=== PATIENT | male | born 1960 | race Caucasian/White ===

== ENCOUNTER 2024-08-16 12:31 | Emergency (ER) | payer OTHER ==
[~2024-08-16] VITALS: Ht 177.8 cm; Wt 137.0 kg
[2024-08-16 12:47] LABS: BASOPHILS 1.2 % (0-2); EOSINOPHILS 2.1 % (0-6); HEMATOCRIT 44.2 % (35.0-50.0); HEMOGLOBIN 14.9 g/dL (12.0-18.0); LYMPHOCYTES 13.8 % (24-44); MCH 30.4 (27-36); MCHC 33.6 g/dl (30-36); MCV 90.5 fl (81-99); MONOCYTES 9.4 % (0-12); NEUTROPHILS 73.5 % (39-80); PLATELET COUNT 261 K/uL (140-440); RBC 4.88 M/ul (4.3-5.7); RDW 12.5 (10.5-15.0)
[2024-08-16] MEDS ORDERED: CLONIDINE HCL0.1 MG PO (12:50)
[2024-08-16] MEDS ORDERED: GABAPENTIN100 MG PO (12:51)
[2024-08-16] MEDS ORDERED: HYDROCHLOROTHIA25 MG PO (12:51)
[2024-08-16] MEDS ORDERED: AMLODIPINE BESYL5 MG PO (12:51)
[2024-08-16] MEDS ORDERED: FUROSEMIDE40 MG PO (12:51)
[2024-08-16] MEDS ORDERED: ATORVASTATIN CA40 MG PO (12:52)
[2024-08-16] MEDS ORDERED: BASAGLAR K100 UNIT/1 SUB-Q (12:53)
[2024-08-16] MEDS ORDERED: INSULIN LI100 UNIT/2 SUB-Q (12:54)
[2024-08-16] MEDS ORDERED: LOSARTAN POTASS50 MG PO (12:54)
[2024-08-16] MEDS ORDERED: ELIQUIS5 MG PO (12:54)
[2024-08-16] MEDS ORDERED: PANTOPRAZOLE SO40 MG PO (12:55)
[2024-08-16] MEDS ORDERED: DILTIAZEM ER300 MG PO (12:55)
[2024-08-16] MEDS ORDERED: CARVEDILOL25 MG PO (12:55)
[2024-08-16 13:06] LABS: ALBUMIN 2.4 g/dL (3.4-5.0); ALBUMIN/GLOBULIN RATIO 0.6 (1.1-2.4); ANION GAP 10.9 (7-21); BILIRUBIN, TOTAL 0.5 mg/dL (0.2-1.0); BUN/CREATININE RATIO 21.89 (6.0-28.6); CALCIUM 9.4 mg/dL (8.5-10.1); CREATININE, SERUM 1.69 mg/dL (0.70-1.30); POTASSIUM 4.9 mmol/L (3.5-5.1); PROTEIN, TOTAL 6.4 g/dL (6.4-8.2)
[2024-08-16 14:42] VITALS: BP 132/73
--- NOTE | 2024-08-17 22:01 | EKG ---
[facility] [address] [facility] [place] [address] Signed Sinus bradycardia with 1st degree AV block with occasional premature ventricular complexes Nonspecific T wave abnormality Abnormal ECG No previous ECGs available Confirmed by Juan Pablo Medley MD () on 08/17/2024 10:01:01 PM Electronically Signed By: JUAN PABLO MEDLEY MD 08/17/242200 PATIENT NAME: MAYELA LEY Electrocardiogram DATE OF : 62 PHYSICIAN: JUAN PABLO MEDLEY MD REPORT #: [id number] REPORT IS CONFIDENTIAL AND NOT TO BE RELEASED WITHOUT AUTHORIZATION
== END 2024-08-16 14:44 | disposition home or self-care (01) ==
LOC: ED 12:31
PROVIDERS: Emergency Medicine
DX: R53.1 Weakness (principal); I10 Essential (primary) hypertension; E11.40 Type 2 diabetes mellitus with diabetic neuropathy, unspecified; Z79.4 Long term (current) use of insulin; Z79.01 Long term (current) use of anticoagulants; Z79.899 Other long term (current) drug therapy
CPT/HCPCS: 36415; 70450; 80053; 84484; 85025; 93005; 93010; 99285-25

== ENCOUNTER 2024-08-25 14:56 | Emergency (ER) | payer OTHER ==
[~2024-08-25] VITALS: Ht 177.8 cm; Wt 140.6 kg
[~2024-08-25 14:56] MED LIST: AMLODIPINE BESYL5 MG PO; ATORVASTATIN CA40 MG PO; BASAGLAR K100 UNIT/1 SUB-Q; CARVEDILOL25 MG PO; CLONIDINE HCL0.1 MG PO; DILTIAZEM ER300 MG PO; ELIQUIS5 MG PO; FUROSEMIDE40 MG PO; GABAPENTIN100 MG PO; HYDROCHLOROTHIA25 MG PO; INSULIN LI100 UNIT/2 SUB-Q; LOSARTAN POTASS50 MG PO; PANTOPRAZOLE SO40 MG PO
--- OUTSIDE RECORDS SUMMARY | 2024-08-25 15:02 | XMS ---
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 [place] VISIT COUNT (12 MO.) 2 [facility] TOTAL 2 NOTE: Visits indicate total known visits. ED/UCC VISIT TRACKING (12 MO.) 08/25/2024 14:[address] [facility] [place] TYPE: Emergency COMPLAINT: - ABDNORMAL LAB RESULTS 08/16/2024 12:[address] [facility] [place] TYPE: Emergency COMPLAINT: - STROKE DIAGNOSES: - Essential (primary) hypertension - residential (current) use of anticoagulants - buttermaker helper (current) use of insulin - Other rodent exterminator (current) drug therapy - Type 2 diabetes mellitus with diabetic neuropathy, unspecified - Weakness INPATIENT VISIT TRACKING (12 MO.) No inpatient visits to display in this time frame [email or web address]
[2024-08-25 18:04] LABS: BASOPHILS 0.3 % (0-2); EOSINOPHILS 4.5 % (0-6); HEMATOCRIT 37.6 % (35.0-50.0); HEMOGLOBIN 12.9 g/dL (12.0-18.0); LYMPHOCYTES 7.9 % (24-44); MCH 30.6 (27-36); MCHC 34.4 g/dl (30-36); MCV 89.1 fl (81-99); MONOCYTES 8.3 % (0-12); PLATELET COUNT 265 K/uL (140-440); RBC 4.22 M/ul (4.3-5.7); RDW 12.6 (10.5-15.0)
[2024-08-25 18:26] LABS: ALBUMIN 1.8 g/dL (3.4-5.0); ALBUMIN/GLOBULIN RATIO 0.46 (1.1-2.4); BILIRUBIN, TOTAL 0.4 mg/dL (0.2-1.0); BUN/CREATININE RATIO 15.95 (6.0-28.6); CALCIUM 8.6 mg/dL (8.5-10.1); CREATININE, SERUM 1.63 mg/dL (0.70-1.30); MAGNESIUM 1.6 mg/dL (1.8-2.4); PROTEIN, TOTAL 5.7 g/dL (6.4-8.2)
[2024-08-25 20:05] VITALS: BP 150/76
--- NOTE | 2024-08-27 21:07 | EKG ---
[facility] [address] [facility] [place] [address] Signed Normal sinus rhythm Normal ECG When compared with ECG of 16-AUG-2024 12:59, premature ventricular complexes are no longer present FL interval has decreased Nonspecific T wave abnormality no longer evident in Lateral leads Confirmed by Kayla Liu MD ([id number]) on 08/27/2024 9:07:19 PM Electronically Signed By: KAYLA LIU MD 08/27/24 2107 PATIENT NAME: MAYELA LEY Electrocardiogram DATE OF : 62 PHYSICIAN: KAYLA LIU MD REPORT #: [id number] REPORT IS CONFIDENTIAL AND NOT TO BE RELEASED WITHOUT AUTHORIZATION
== END 2024-08-25 20:08 | disposition home or self-care (01) ==
LOC: ED 14:56
PROVIDERS: Emergency Medicine
DX: I11.0 Hypertensive heart disease with heart failure (principal); I50.9 Heart failure, unspecified; E11.40 Type 2 diabetes mellitus with diabetic neuropathy, unspecified; Z79.899 Other long term (current) drug therapy; Z79.4 Long term (current) use of insulin; Z79.01 Long term (current) use of anticoagulants
CPT/HCPCS: 36415; 71045; 80053; 83735; 83880; 84484; 85025; 93005; 93010; 99284-25

== ENCOUNTER 2024-09-09 08:25 | Day surgery (SDC) | payer OTHER ==
[2024-08-27 13:30] VITALS: BP 187/93
[~2024-09-09] VITALS: Ht 177.8 cm; Wt 140.0 kg
[~2024-09-09 08:25] MED LIST changes: +IBLOOD GLUCOSE TEST STRIP 1 EA TEST VI PRN; +LACTATED RINGER'S 1,000 ML IV SCH; +LIDOCAINE HCL 1% 5 ML SDV INJ ONE; +MIDAZOLAM HCL 5 MG/5 ML VIAL IV PRN; +fentaNYL citrate 100 MCG/2 ML VIAL IV PRN
[2024-09-09 08:53] VITALS: BP 135/75
[2024-09-09] MEDS ORDERED: propofoL 200 MG/20 ML VIAL ONE (10:18)
[2024-09-09] MEDS ORDERED: DIGOXIN 500 MCG/2 ML AMP ONE (11:21)
[2024-09-09 13:25] VITALS: BP 141/79
--- NOTE | 2024-09-09 20:17 | OR ---
[facility] [address] [place], [place] [address] Signed DATE OF OPERATION: 09/09/2024 SURGEON: Nathaniel Starkey MD PREOPERATIVE DIAGNOSIS: Guaiac-positive stool. POSTOPERATIVE DIAGNOSES: 1. 15 mm pedunculated polyp at 40 cm in left colon (snare, tattoo). 2. 5 mm polyps x2 at hepatic flexure (snare x2). 3. 7 mm polyp at cecum (snare). 4. 4 mm polyp at proximal right colon (hot biopsy). 5. 5 mm and 12 mm polyp at mid right colon (snare x2). 6. 5 mm polyp at proximal transverse colon (hot biopsy). PROCEDURE: Colonoscopy, snare polypectomy hot biopsy and injection of tattoo x1. ESTIMATED BLOOD LOSS: None. INDICATIONS: Kian is a 64-year-old obese diabetic gentleman, asked to see me for his initial colonoscopy. He is originally from [place], [place]. 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 His uncontrolled diabetes and peripheral neuropathy was so bad he had to retire. On his way back to [place], he was having diarrhea. He stopped at his sister's house. He went to a local Urgent Care Clinic. All the stool studies were negative. Eventually, he made his way all the way back to [place], [place] to be with his family. He has established with a primary care provider here in [place], [place]. [place] His repeat stool samples were guaiac positive. He said the diarrhea resolved after about 10 days. He was telling me about his uncontrolled diabetes with a hemoglobin A1c over 10. He said it is getting better now. He said he cannot remember when his sugar was under 300. He also has a history of atrial flutter and required a cardioversion. He said he has been in sinus rhythm ever since. He said he had two tiny strokes in June of this year. He has been on Eliquis since that time. He said it is very expensive and he is probably going to have to stop the Eliquis. He has no family history of colon cancer or polyps. In the office I had given him a pamphlet on colonoscopy. We had reviewed the nature of the test. There is risk including, but not limited to gas bloating, crampy abdominal pain, bleeding, perforation requiring surgery, Electronically Signed By: NATHANIEL STARKEY MD 09/09/242016 PATIENT NAME: KIAN LEY OPERATIVE REPORT DATE OF : 62 REPORT #: [id number] PHYSICIAN: NATHANIEL STARKEY MD PCP: PHOEBE GANNON PAC REPORT IS CONFIDENTIAL AND NOT TO BE RELEASED WITHOUT AUTHORIZATION [facility] [address] [place] [id number] Signed and missed diagnosis. We also reviewed the written instructions for our bowel prep line by line. We had him hold Eliquis before the procedure along with his diabetic medications. His memory is not the best since the strokes, his sister has been helping him in that regard. In fact, she is here today to help drive him home. The [facility] [employer] patrol stopped him and he had been all over the road. He is no longer allowed to drive. Apparently his daughter is in the area as well. He has a very full round face and he is trying to get his medical conditions under control. Therefore, we asked for monitored anesthesia care propofol infusion. That worked out well. He had expressed understanding and wished to proceed. DESCRIPTION OF PROCEDURE: Kian was taken into our endoscopy suite and placed in the left lateral decubitus position. He was given monitored anesthesia care per our nurse supervisor pre wave. A digital rectal exam was performed. Really not much in the way of external hemorrhoids. He had good sphincter tone. No masses. The adult colonoscope was introduced and advanced all the way around into the cecum under direct visualization of camera without difficulty. Thankfully, his prep was quite good. He is not particularly difficult to scope. We could easily see the appendiceal orifice and ileocecal valve. You can see the eight polyps that we removed as listed above using the snare mostly and also the hot biopsy forceps. We also put a tattoo back at 40 cm. There was no diverticulosis. Once we got in the rectum, the scope was retroflexed and there was no additional pathology noted above the anal canal. After this, the gas was suctioned out. The colonoscope removed. Kian tolerated the procedure quite well. RECOMMENDATIONS: I will see Kian back in my office in 7 to 14 days to review his results. He will always need monitored anesthesia care in the future. I suspect he will be on a short rotation maybe 1 to 3 years depending on pathology results. Nathaniel Starkey MD ALB/MODL /[id number] cc: Nathaniel Starkey MD Electronically Signed By: NATHANIEL STARKEY MD 09/09/242016 PATIENT NAME: KIAN LEY OPERATIVE REPORT DATE OF : 62 REPORT #: [id number] PHYSICIAN: NATHANIEL STARKEY MD PCP: PHOEBE GANNON PAC REPORT IS CONFIDENTIAL AND NOT TO BE RELEASED WITHOUT AUTHORIZATION [facility] [address] [place], [place] [address] Signed Phoebe Gannon PA-C Copies: NATHANIEL STARKEY MD ~ Electronically Signed By: NATHANIEL STARKEY MD 09/09/24 2017 PATIENT NAME: KIAN LEY OPERATIVE REPORT DATE OF : 62 REPORT #: [id number] PHYSICIAN: NATHANIEL STARKEY MD PCP: PHOEBE GANNON PAC REPORT IS CONFIDENTIAL AND NOT TO BE RELEASED WITHOUT AUTHORIZATION
--- NOTE | 2024-09-11 10:27 | PATH ---
[facility] [address] [facility] [address] [place], [place] [address] Signed SPECIMEN(S): A DESCENDING COLON POLYP AT 40 CM SPECIMEN(S): B HEPATIC FLEXURE COLON POLYPS SPECIMEN(S): C CECUM COLON POLYP SPECIMEN(S): D PROXIMAL ASCENDING COLON POLYP SPECIMEN(S): E DISTAL ASCENDING COLON POLYP SPECIMEN(S): F PROXIMAL TRANSVERSE COLON POLYP SPECIMEN(S): G MID ASCENDING COLON POLYP SPECIMEN SOURCE: A. DESCENDING COLON POLYP AT 40 CM B. HEPATIC FLEXURE COLON POLYPS C. CECUM COLON POLYP D. PROXIMAL ASCENDING COLON POLYP E. DISTAL ASCENDING COLON POLYP F. PROXIMAL TRANSVERSE COLON POLYP G. MID ASCENDING COLON POLYP CLINICAL HISTORY: Guaiac positive, initial C-scope, diarrhea. Postop: Colon polyps. FINAL PATHOLOGIC DIAGNOSIS: A. Colon, descending at 40 cm, polypectomy: - Tubulovillous adenoma with high-grade dysplasia - Polypectomy margin involved by low-grade dysplasia B. Colon, hepatic flexure, polypectomies: - Tubular adenomas (multiple fragments) C. Cecum, polypectomy: - Tubular adenoma D. Colon, proximal ascending, polypectomy: - Tubular adenoma E. Colon, distal ascending, polypectomy: - Tubular adenoma F. Colon, proximal transverse, polypectomy: - Tubular adenoma G. Colon, mid ascending, polypectomy: - Tubular adenoma BRP MICROSCOPIC EXAMINATION: Histologic sections of all submitted blocks are examined by light microscopy. These findings, together with the gross examination, support the pathologic PATIENT NAME: MAYELA LEY ANTONIA PATHOLOGY DATE OF : 62 REPORT #: [id number] PHYSICIAN: MURTAZA PATHOLOGY PCP: PHOEBE JAMES PAC REPORT IS CONFIDENTIAL AND NOT TO BE RELEASED WITHOUT AUTHORIZATION [facility] [address] [place], [place] [address] Signed diagnosis. GROSS DESCRIPTION: A. The specimen, labeled and designated "Valeriy, descending colon polyp at 40 cm," is received in formalin and consists of three moreira soft tissue fragments, ranging from 0.6-0.8 cm. Two tissue fragments are inked and all three are sectioned. Entire specimen is submitted in (A1). B. The specimen, labeled and designated "Valeriy, hepatic flexure polyps," is received in formalin and consists of multiple moreira soft tissue fragments, 0.1-0.3 cm. Entirely submitted in (B1). C. The specimen, labeled and designated "Valeriy, cecum polyp," is received in formalin and consists of one moreira soft tissue fragment, 0.6 cm. Specimen is bisected and entirely submitted in (C1). D. The specimen, labeled and designated "Valeriy, proximal ascending colon polyp," is received in formalin and consists of three moreira soft tissue fragments, ranging from 0.1 to 0.2 cm. Entirely submitted in (D1). E. The specimen, labeled and designated "Valeriy, distal ascending colon polyp," is received in formalin and consists of two moreira soft tissue fragments, ranging from 0.1 to 0.2 cm. Entirely submitted in (E1). F. The specimen, labeled and designated "Valeriy, proximal transverse colon polyp," is received in formalin and consists of one moreira soft tissue fragment, 0.1 cm. Entirely submitted in (F1). G. The specimen, labeled and designated "Valeriy, mid ascending colon polyp," is received in formalin and consists of one moreira soft tissue fragment, 0.7 cm. Specimen is bisected and entirely submitted in (G1). JS (under the direct supervision of a pathologist) The Gross Description was prepared using a voice recognition system. The report was reviewed for accuracy; however, sound-alike word errors, addition and/or deletions may occur. If there is any question about this report, please contact Client Services. ADDITIONAL NOTES: Immunohistochemical and/or in situ hybridization studies if performed in this case included appropriate positive controls that reacted as expected. This test was developed and its performance characteristics determined by [facility]. It has not been cleared or approved by the U.S. Food and Drug Administration. The FDA has determined that PATIENT NAME: MAYELA LEY PATHOLOGY DATE OF : 62 REPORT #: [id number] PHYSICIAN: MURTAZA LIMA PCP: PHOEBE JAMES PAC REPORT IS CONFIDENTIAL AND NOT TO BE RELEASED WITHOUT AUTHORIZATION [facility] [address] [place] [id number] Signed such clearance or approval is not necessary. This test is used for clinical purposes. It should not be regarded as investigational or for research. [facility] is certified under the Clinical Laboratory Improvement Amendments of 1988 (CLIA) as qualified to perform high complexity clinical laboratory testing. PERFORMING LABORATORY: Technical component was performed by [facility], [address] [place] [address] (CLIA# [id number]). Professional interpretation was performed by [facility], [address] [address] (CLIA# [id number]). Diagnostician: Madhu Oliva MD Pathologist Electronically Signed 09/11/2024 Copies: ~ PATIENT NAME: MAYELA LEY PATHOLOGY DATE OF : 62 REPORT #: [id number] PHYSICIAN: MURTAZA PATHOLOGY PCP: PHOEBE JAMES PAC REPORT IS CONFIDENTIAL AND NOT TO BE RELEASED WITHOUT AUTHORIZATION
== END 2024-09-09 13:37 | disposition home or self-care (01) ==
LOC: DS 08:25
PROVIDERS: ATTEND Colon & Rectal Surgery
PROC: 0DBL8ZZ Excision of Transverse Colon, Via Natural or Artificial Opening Endoscopic (ICD-10-PCS; 2024-09-09)
PROC: 0DBF8ZZ Excision of Right Large Intestine, Via Natural or Artificial Opening Endoscopic (ICD-10-PCS; 2024-09-09)
PROC: 0DBG8ZZ Excision of Left Large Intestine, Via Natural or Artificial Opening Endoscopic (ICD-10-PCS; 2024-09-09)
PROC: 0DBH8ZZ Excision of Cecum, Via Natural or Artificial Opening Endoscopic (ICD-10-PCS; principal; 2024-09-09 11:15)
DX: D12.0 Benign neoplasm of cecum (principal); D12.2 Benign neoplasm of ascending colon; D12.3 Benign neoplasm of transverse colon; D12.4 Benign neoplasm of descending colon; E66.9 Obesity, unspecified; I10 Essential (primary) hypertension; K21.9 Gastro-esophageal reflux disease without esophagitis; I48.91 Unspecified atrial fibrillation; E11.42 Type 2 diabetes mellitus with diabetic polyneuropathy; G47.33 Obstructive sleep apnea (adult) (pediatric); Z79.899 Other long term (current) drug therapy; Z68.41 Body mass index [BMI] 40.0-44.9, adult; Z86.73 Personal history of transient ischemic attack (TIA), and cerebral infarction without residual deficits
CPT/HCPCS: 00811; 36415; 83880; J1160; J2704; J7121

== ENCOUNTER 2024-09-17 11:34 | Inpatient (IN) | payer OTHER ==
[~2024-09-17] VITALS: Ht 177.8 cm; Wt 138.2 kg
[~2024-09-17 11:34] MED LIST changes: -IBLOOD GLUCOSE TEST STRIP 1 EA TEST VI PRN; -LACTATED RINGER'S 1,000 ML IV SCH; -LIDOCAINE HCL 1% 5 ML SDV INJ ONE; -MIDAZOLAM HCL 5 MG/5 ML VIAL IV PRN; -fentaNYL citrate 100 MCG/2 ML VIAL IV PRN
--- OUTSIDE RECORDS SUMMARY | 2024-09-17 11:41 | XMS ---
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 [place] VISIT COUNT (12 MO.) 3 [facility] TOTAL 3 NOTE: Visits indicate total known visits. ED/UCC VISIT TRACKING (12 MO.) 09/17/2024 11:35 [facility] TYPE: Emergency COMPLAINT: - FELLOW UP 08/25/2024 14:56 [facility] TYPE: Emergency COMPLAINT: - ABDNORMAL LAB RESULTS DIAGNOSES: - Heart failure, unspecified - Hypertensive heart disease with heart failure - Localized edema - senior care (current) use of anticoagulants - senior care (current) use of insulin - Other detention (current) drug therapy - Other specified abnormal findings of blood chemistry - Type 2 diabetes mellitus with diabetic neuropathy, unspecified 08/16/2024 12:32 [facility] TYPE: Emergency COMPLAINT: - STROKE DIAGNOSES: - Essential (primary) hypertension - terminal manager (current) use of anticoagulants - senior care (current) use of insulin - Other terminal manager (current) drug therapy - Type 2 diabetes mellitus with diabetic neuropathy, unspecified - Weakness INPATIENT VISIT TRACKING (12 MO.) No inpatient visits to display in this time frame [email or web address]
[2024-09-17 14:09] LABS: BASOPHILS 0.8 % (0-2); EOSINOPHILS 4.2 % (0-6); HEMATOCRIT 37.9 % (35.0-50.0); HEMOGLOBIN 13.1 g/dL (12.0-18.0); LYMPHOCYTES 15.9 % (24-44); MCH 29.6 (27-36); MCHC 34.6 g/dl (30-36); MCV 85.6 fl (81-99); MONOCYTES 8.2 % (0-12); NEUTROPHILS 70.9 % (39-80); PLATELET COUNT 246 K/uL (140-440); RBC 4.43 M/ul (4.3-5.7); RDW 12.8 (10.5-15.0)
[2024-09-17 14:19] LABS: INR 1.16 (0.80-1.30); PROTIME 14.8 Sec (11.2-14.2)
[2024-09-17 14:21] LABS: PARTIAL THROMBOPLASTIN TIME 29.1 Sec (22.9-41.3)
[2024-09-17] MEDS ORDERED: POTASSIUM CHLO10 ME1 PO (15:22)
[2024-09-17 15:24] LABS: ALBUMIN 2.6 g/dL (3.4-5.0); ALBUMIN/GLOBULIN RATIO 0.74 (1.1-2.4); ALCOHOL, MEDICAL <3 ng/dL (<3); ALKALINE PHOSPHATASE 122 U/L (46-116); ALT (SGPT) 38 U/L (14-59); ANION GAP 10.7 (7-21); AST (SGOT) 11 U/L (15-37); BILIRUBIN, TOTAL 0.4 mg/dL (0.2-1.0); BUN/CREATININE RATIO 23.59 (6.0-28.6); CALCIUM 9.3 mg/dL (8.5-10.1); CARBON DIOXIDE 28 mmol/L (21-32); CHLORIDE 106 mmol/L (98-107); CREATININE, SERUM 1.78 mg/dL (0.70-1.30); GLOMERULAR FILTRATION RATE,EST 42 mL/min (>60); POTASSIUM 3.7 mmol/L (3.5-5.1); PROTEIN, TOTAL 6.1 g/dL (6.4-8.2); UREA NITROGEN 42 mg/dL (7-18)
[2024-09-17] MEDS ORDERED: GLUCAGON,HUMAN RECOMBINANT 1 MG/ML VIAL SUB-Q PRN (16:30)
[2024-09-17] MEDS ORDERED: ondansetron HCL 4 MG/2 ML VIAL IV PRN (16:30)
[2024-09-17] MEDS ORDERED: IBLOOD GLUCOSE TEST STRIP 1 EA TEST XX PRN (16:30)
[2024-09-17] MEDS ORDERED: DEXTROSE 50% 50 ML SYR IV PRN ×2 (16:30)
[2024-09-17] MEDS ORDERED: DEXTROSE 5% 1,000 ML IV PRN (16:30)
[2024-09-17] MEDS ORDERED: ACETAMINOPHEN 325 MG TAB PO PRN (16:30)
[2024-09-17] MEDS ORDERED: IBLOOD GLUCOSE TEST STRIP 1 EA TEST VI SCH (17:00)
[2024-09-17] MEDS ORDERED: INSULIN LISPRO 100 UNIT/ML ML SUB-Q SCH (17:00)
[2024-09-17 17:28] VITALS: BP 178/82
[2024-09-17] MEDS ORDERED: CO Q-1050 MG PO (17:53)
[2024-09-17] MEDS ORDERED: ADULT LOW DOSE81 MG PO (17:53)
[2024-09-17] MEDS ORDERED: B-121000 MC2 PO (17:54)
--- NOTE | 2024-09-17 17:56 | NUR ---
medications reconciled using pharmacy records and patient interview
[2024-09-17 18:23] VITALS: BP 178/82
--- NOTE | 2024-09-17 18:27 | NUR ---
REPORT REC'D FROM PANCHO IN ED, PT TRANSPORTED TO ROOM VIA W/C. PT A&OX4, DOES REPORT DIZZINESS WHEN HE STANDS UP TO QUICKLY WELL BEING FORGETFUL. THESE BOTH ARE INCREASING SINCE HIS FIRST STROKE IN MAY. NIH COMPLETED, SCORE OF 0. REFERRALS PLACED FOR RT R/T CPAP USE AND BUSINESS APPLICATIONS DEVELOPER R/T CHF. PT ORIENTED TO ROOM AND CALL [facility]. PROVIDED EVENING MEAL. INSTRUCTED ON URINE COLLECTION. L AC 20G IV FLUSHED, SITE PATENT AND WNL. PT REPORTS NUMBNESS AND TINGLING TO HANDS AND FEET FROM DIABETIC NEUROPATHY. DENIES PAIN, SHORTNESS OF BREATH. PT INSTRUCTED TO CALL FOR ASSISTANCE, SIDERAILS UP X 2, CALL [facility] IN REACH, BED IN LOW POSITION AND LOCKED.
[2024-09-17 18:40] LABS: INFLUENZA B NAA NEGATIVE (NEGATIVE); RESPIRATORY SYNCYTIAL VIR NAA NEGATIVE (NEGATIVE)
[2024-09-17] MEDS ORDERED: SODIUM CHLORIDE 0.9% 1,000 ML IV SCH (18:45)
[2024-09-17 19:03] LABS: CANNABINOID, URINE NEGATIVE (NEGATIVE)
[2024-09-17 19:27] LABS: AMPHETAMINES, URINE NEGATIVE (NEGATIVE); BARBITURATES, URINE NEGATIVE (NEGATIVE); BENZODIAZEPINE, URINE NEGATIVE (NEGATIVE); BUPRENORPHINE, URINE NEGATIVE (NEGATIVE); COCAINE, URINE NEGATIVE (NEGATIVE); ECSTASY, URINE NEGATIVE (NEGATIVE); FENTANYL, URINE NEGATIVE (NEGATIVE); METHADONE, URINE NEGATIVE (NEGATIVE); OPIATES, URINE NEGATIVE (NEGATIVE); OXYCODONE, URINE NEGATIVE (NEGATIVE); PHENCYCLIDINE, URINE NEGATIVE (NEGATIVE)
--- NOTE | 2024-09-17 19:43 | NUR ---
RECEIVED REPORT FROM JAYME HARRIS. PT SLEEPING WHEN ENTERED ROOM BUT AWAKENED EASILY. DENIES ANY NEEDS OR CONCERNS AT THIS TIME.
--- NOTE | 2024-09-17 20:15 | NUR ---
PT ASLEEP, AWAKENS EASILY FOR HS ASSESSMENT AND MEDS. VSS. ORIENTED X 4. DENIES PAIN. NO NEURO DEFICITS NOTED. PERRLA. FACE SYMMETRICAL. TONGUE MIDLINE. MS 5/5 X 4. NO ATAXIA, NO PRON/DRIFT. LSC. HRR, TELE PLACED PER ORDER. PT HAS 1+ EDEMA TO BLE. N/T TO ALL 4 EXTREMITIES UNCHANGED. BTA, ABD OBESE. LBM TODAY. VOIDS WNL-URINAL AT BEDSIDE PER REQUEST. PT HAS LAC IV INFUSING LR. RT TO BRING IN C-PAP FOR HS. BG 264, SLIDING SCALE INSULIN ADMINISTERED. CALL LIGHT WITHIN REACH.
[2024-09-17 20:50] VITALS: BP 171/72
[2024-09-17] MEDS ORDERED: GABAPENTIN 100 MG CAP PO SCH (21:00)
[2024-09-17 21:06] VITALS: BP 171/72
--- NOTE | 2024-09-17 22:36 | NUR ---
PT AWAKE, SLEEPING BETWEEN CARE. C-PAP IN PLACE.
--- NOTE | 2024-09-17 22:48 | NUR ---
MAYELA WEARS A HOME CPAP +14, HOWEVER IT IS AT HOME SO HE IS WEARING ONE OF [facility] RESMEN UNITS WITH A LARGE NASAL MASK ON. MAYELA WAS ON ROOM AIR PRIOR TO [facility] IL[facility]
--- NOTE | 2024-09-17 23:04 | EKG ---
[facility] [address] [facility] [place] [address] Signed Sinus bradycardia with 1st degree AV block Otherwise normal ECG When compared with ECG of 25-AUG-2024 17:36, ID interval has increased Confirmed by Juan Pablo Medley MD () on 09/17/2024 11:04:41 PM Electronically Signed By: JUAN PABLO MEDLEY MD 09/17/24 2304 PATIENT NAME: MAYELA LEY Electrocardiogram DATE OF : 62 PHYSICIAN: JUAN PABLO MEDLEY MD REPORT #: [id number] REPORT IS CONFIDENTIAL AND NOT TO BE RELEASED WITHOUT AUTHORIZATION
[2024-09-18] VITALS (8 sets, daily range): BP systolic 118–184; BP diastolic 75–94
--- NOTE | 2024-09-18 00:40 | NUR ---
PT SLEEPING, AWAKENS EASILY FOR Q 4 HRS NEURO CHECK. NO CHANGE IN NEUROS, NO DEFICITS NOTED. C-PAP IN PLACE.
--- NOTE | 2024-09-18 01:45 | NUR ---
LAP WELDER OBTAINED VITALS AND I&O. PT STATES NO NEEDS AT THIS STIME. CALL LIGHT WITHIN REACH.
--- NOTE | 2024-09-18 03:27 | NUR ---
PT SLEEPING SOUNDLY. C-PAP IN PLACE.
--- NOTE | 2024-09-18 04:41 | NUR ---
PT AWAKE, SLEEPING BETWEEN CARE. NO NEURO DEFICITS NOTED. MS 5/5 X 4. FACE SYMMETRICAL. DRAPERY CUTTER MACHINE STRONG & EQUAL.
[2024-09-18 05:45] LABS: BASOPHILS 0.6 % (0-2); EOSINOPHILS 4.3 % (0-6); HEMATOCRIT 36.5 % (35.0-50.0); HEMOGLOBIN 12.9 g/dL (12.0-18.0); MCH 29.9 (27-36); MCHC 35.3 g/dl (30-36); MCV 84.5 fl (81-99); MONOCYTES 9.5 % (0-12); NEUTROPHILS 67.6 % (39-80); PLATELET COUNT 236 K/uL (140-440); RBC 4.32 M/ul (4.3-5.7); RDW 12.7 (10.5-15.0)
--- NOTE | 2024-09-18 05:47 | NUR ---
PT REQUESTED AM SNACK BEFORE BREAKFAST-APPLESAUCE AND MILK GIVEN. C-PAP OFF FOR THE DAY.
--- NOTE | 2024-09-18 06:02 | NUR ---
ENGINEERING LABORATORY TECHNICIAN OBTAINED VITALS AND I&O. PT STANDING WEIGHT OBTAINED VITALS. NO NEW I&O AT THIS TIME. PT STATES NO NEEDS AT THIS TIME. CALL LIGHT WITHIN REACH.
[2024-09-18 06:15] LABS: ALBUMIN 2.5 g/dL (3.4-5.0); ALBUMIN/GLOBULIN RATIO 0.74 (1.1-2.4); ANION GAP 11.5 (7-21); BILIRUBIN, TOTAL 0.5 mg/dL (0.2-1.0); BUN/CREATININE RATIO 19.73 (6.0-28.6); CALCIUM 9.1 mg/dL (8.5-10.1); CHOLESTEROL/HDL RATIO 3.7; CREATININE, SERUM 1.52 mg/dL (0.70-1.30); MAGNESIUM 1.8 mg/dL (1.8-2.4); PHOSPHORUS, INORGANIC 3.6 mg/dL (2.5-4.9); POTASSIUM 3.5 mmol/L (3.5-5.1); PROTEIN, TOTAL 5.9 g/dL (6.4-8.2); TSH, 3RD GENERATION 5.327 uIU/mL (0.358-3.740)
--- NOTE | 2024-09-18 07:33 | NUR ---
PT RESTING IN BED. BS CHECK COMPLETE. PT TOLERATED WELL. ICE WATER PROVIDED. PT DENIES FURTHER NEEDS AT THIS TIME, CALL LIGHT IN REACH.
--- NOTE | 2024-09-18 08:17 | NUR ---
Patient awake, alert and oriented x3, patient is at times forgetful and has a delayed verbal response to questions. Patient answering questions appropriately. Patient reporting a 4/10 headache, tylenol 650mg po admin at this time. Patient tolerated breakfast well. No current needs, personal supplies and call light within reach.
--- NOTE | 2024-09-18 08:44 | NUR ---
ECHO IN ROOM. PT MEAL TRAY REMOVED.
[2024-09-18] MEDS ORDERED: dilTIAZem HCL 300 MG CAPCR PO SCH (09:00)
[2024-09-18] MEDS ORDERED: ATORVASTATIN 40 MG TAB PO SCH (09:00)
[2024-09-18] MEDS ORDERED: APIXABAN 5 MG TAB PO SCH (09:00)
--- NOTE | 2024-09-18 09:46 | NUR ---
pt up w PT. bed linen change complete.
--- NOTE | 2024-09-18 10:39 | NUR ---
PT RESTING IN BED. PT REQ TO SEE MD AND IS "WANTING TO KNOW WHAT THEY FOUND". RN NOTIFIED. PT DENIES FURTHER NEEDS AT THIS TIME. CALL LIGHT IN REACH.
--- NOTE | 2024-09-18 11:13 | NUR ---
UR CLINICAL REVIEW: MCG, MEETS OBS FOR STROKE, ISCHEMIC AND PNEUMONIA REQUIRES FURTHER STUDIES, ECHO, PT/OT EVAL, VIRAL PANEL, CARDIAC MONITORING CIGNA OBS 09/17/2024 @ 1624 ORDER MATCHES REG AUTH PENDING, WILL SEND CLINICALS TODAY PLAN TO DC TO HOME WHEN MEDICALLY STABLE 09/19/2024
--- NOTE | 2024-09-18 11:39 | NUR ---
PT RESTING IN BED. CBG COMPLETE. CBG 292. PT TOLERATED WELL. ICE WATER PROVIDED. DENIES FURTHER NEEDS AT THIS TIME. CALL LIGHT IN REACH.
--- NOTE | 2024-09-18 11:44 | NUR ---
INTO SEE PATIENT. PERSONAL HEALTH INFORMATION REVIEWED. PATIENT LIVES IN A HOUSE WITH 3 STEPS DENIES DIFFCULTY DOING THEM BUT RECENTLY BOUGHT A CANE FOR AMBULATION. NO WHEELCHAIR OR WALKER AT HOME. DENIES HAVING OXYGEN AND CPAP. DOES NOT DRIVE ANYMORE. HE STATES HIS SISTER LIVES NEXT DOOR WITH HIS MOTHER AND SHE HELPS WITH HIS MEDICATIONS. HE LIVES WITH HIS DAUGHTER, IKE, HIS DAUGHTER EX AND HER NEW BOYFRIEND. STATES HE JUST LOST HIS JOB BUT STILL RECIEVES SS BENEFITS. HE BELIEVES HE MAKES TO MUCH FOR [employer] BUT I LET HIM KNOW TO CALL AND SIGN UP FOR FOOD STAMPS IF HE NEEDS. TALKED WITH HIM ABOUT HOME HEALTH HE IS AGREEABLE. [facility] IS THE ONLY AGENCY TO TAKE MOBILE PATIENT SO THE REFFERAL WILL BE SENT TO THEM. NO FUTHER CM NEEDS.
[2024-09-18] MEDS ORDERED: PHARMACY RENAL DOSE ADJUSTMENT 1 DOSE MISC PO SCH (12:00)
--- NOTE | 2024-09-18 12:00 | NUR ---
Dr. Rosas aware of increased bp; 184/94, p64 from this morning. No new orders at this time.
--- NOTE | 2024-09-18 12:10 | NUR ---
RECEIVED CALL FROM CCU RN - PATIENT TELEMETRY READINGS ARE LOOKING LIKE A NEW TYPE 2 HEART BLOCK, WHICH IS A CHANGE FROM NIGHT REPORT THAT HE WAS SINUS ONEAL. PT HR IS IN THE 50'S, MD WAS INFORMED VIA FACE TO FACE UPDATE. ORDERS FOR EKG PER MD. PRIMARY RN NOTIFIED.
--- NOTE | 2024-09-18 13:15 | NUR ---
PT RESTING IN BED. VITALS AND IS AND OS COMPLETE. MD IN ROOM. BED IN LOWEST POSITION. CALL LIGHT IN REACH
--- NOTE | 2024-09-18 13:47 | EKG ---
[facility] [address] [facility] [place] [address] Signed Sinus rhythm with 2nd degree AV block (Mobitz I) Abnormal ECG When compared with ECG of 17-SEP-2024 13:31, Sinus rhythm is now with 2nd degree AV block (Mobitz I) Confirmed by Juan Pablo Medley MD () on 09/18/2024 1:47:12 PM Electronically Signed By: JUAN PABLO MEDLEY MD 09/18/24 1347 PATIENT NAME: MAYELA LEY Electrocardiogram DATE OF : 62 PHYSICIAN: JUAN PABLO MEDLEY MD REPORT #: [id number] REPORT IS CONFIDENTIAL AND NOT TO BE RELEASED WITHOUT AUTHORIZATION
--- NOTE | 2024-09-18 14:02 | NUR ---
Bedside report provided to Maricarmen Lawson RN. Patient awake, alert and oriented x3, no acute distress.
--- NOTE | 2024-09-18 14:10 | NUR ---
PT TRANSPORTED TO ROOM 130 BY BED - PT ALERT AND ORIENTED PARTICIPATING IN BED SIDE REPORT. PACER PADS PLACED ON PT UPON ARRIVAL AND TRANSISTIONED TO UNIT MONITORING - REMIANS IN 2 DEGREE TYPE 1 BLOCK, RATES LOW 47 BUT SUSTAINED 50'S MOST TIME. PT ONLY ENDORSES DIZZINESS UPON LAYING TO STANDING WHICH HE STATES HE FELT EARLIER. DENIES CHEST PAIN, PALPITATIONS, FATIGUE, HEADACHE, NAUSEA OR ANY GERNAL UNWELL FEELINGS. NEURO ASSESSMENT NEGATIVE FOR ANY ACUTE FINDINGS, NIH SCORE 0 CURRENTLY. PT REPORTS BEING FORGETFUL WHEN ASKED QUESTIONS REGARDING LAST FEW DAYS. 2+ EDEMA IN BILAT LOWER EXTREMITIES TO KNEES - PT REPORTS SIGNIFICANT CHRONIC NEUROPATHY IN BOTH FEET.
--- NOTE | 2024-09-18 15:02 | NUR ---
UR CLINICAL REVIEW: MCG, MEETS INPT FOR STROKE, ISCHEMIC AND CARDIAC GRG REQUIRES FURTHER STUDIES, ECHO, PT/OT EVAL, VIRAL PANEL, CARDIAC MONITORING CIGNA FROM OBS TO INPT 09/18/2024 @ 1335 ORDER MATCHES REG AUTH PENDING, WILL SEND CLINICALS TODAY POTENTIAL TRANSFER FOR CARDIOLOGY SERVICES. 09/20/2024
--- NOTE | 2024-09-18 15:27 | NUR ---
RN IN ROOM TO ADDRESS BED ALARM. PT ASSISTED TO SIDE OF BED TO STAND TO USE URINAL. PT UNABLE TO COORDINATE STANDING AND HOLDING OWN URNIAL, URINE VOIDED ON FLOOR. PT DENIES DIZZINESS WITH STANDING BUT IS UNSTEADY. HR ELEVATED TO 70'S BRIEFLY ON MONITOR.
--- NOTE | 2024-09-18 16:07 | NUR ---
PT UPDATED ON TRANSFER STATUS AT THIS TIME - BOTH CHARGE LPN AND HOSPITALIST HAVE ACCEPTED PT AT [facility], AWAITING TRANSFER CENTER BED ASSINGMENT. PT NOTIFIED FAMILY HIMSELF. SISTER LIANNE UPDATED POINT OF CONTACT PER PT REQUEST.
--- NOTE | 2024-09-18 17:06 | NUR ---
REPORT GIVEN TO [facility] AND TRANSFER PACKET. PT AAO AND WITHOUT SYMPTOMS UPON DEPARTURE.
--- NOTE | 2024-09-18 17:21 | NUR ---
REPORT CALLED TO WES AT [facility]
[2024-09-19 13:25] LABS: FOLATE,SERUM 16.6 ng/mL (>=5.9)
[2024-09-20 15:46] LABS: THYROXINE FREE 0.9 ng/dL (0.9-1.7)
== END 2024-09-18 17:10 | disposition short-term general hospital (02) | DRG 64 ==
LOC: ED 11:34 → MS 16:51 → CCU 09-18 13:35 → MS 09-18 13:36 → CCU 09-18 14:22
PROVIDERS: Emergency Medicine; ADMIT Family Medicine; ATTEND Student in an Organized Health Care Education/Training Program
DX: I63.89 Other cerebral infarction (principal); J12.9 Viral pneumonia, unspecified; N17.9 Acute kidney failure, unspecified; E11.40 Type 2 diabetes mellitus with diabetic neuropathy, unspecified; I44.1 Atrioventricular block, second degree; I48.91 Unspecified atrial fibrillation; R41.3 Other amnesia; E03.9 Hypothyroidism, unspecified; R91.1 Solitary pulmonary nodule; I50.9 Heart failure, unspecified; I11.0 Hypertensive heart disease with heart failure; T45.516A Underdosing of anticoagulants, initial encounter; Z86.73 Personal history of transient ischemic attack (TIA), and cerebral infarction without residual deficits; Z91.120 Patient's intentional underdosing of medication regimen due to financial hardship; Z79.4 Long term (current) use of insulin; Z79.01 Long term (current) use of anticoagulants
CPT/HCPCS: 36415; 36430; 70450; 70496; 70498; 71045; 71250; 80053; 80061; 80307; 82607; 82746; 83036; 83735; 84100; 84439; 84443; 84484; 85025; 85610; 85730; 87502; 93005; 93010; 93306; 94660; 97161; 97166; 97530; 99285-25; A9270; G0378; G0480; J1815; J7030; Q9967; U0002